=== PATIENT | female | born 1995 | race Caucasian/White ===

== ENCOUNTER 2016-09-09 01:32 | Emergency (ER) | payer OTHER ==
[2016-09-09 02:44] VITALS: BP 111/62; PULSE 75; TEMP 97.5; BMI 25.7
[2016-09-09 02:52] LABS: BASOPHIL 0.7 % (0-2.0); EOSINOPHIL 0.7 % (0-4.5); MCH 30.1 pg (25.7-33.7); MEAN PLT VOLUME 8.8 fl (7.5-11.1); NEUTROPHILS 82.7 % (42.8-82.8); PLATELET COUNT 270 K/MM3 (134-434); WHITE BLOOD COUNT 12.3 K/mm3 (4.0-10.0)
--- NOTE | 2016-09-09 02:59 | PDOC ---
History of Present Illness - General Chief Complaint: Vaginal Bleeding Stated Complaint: 5 WEEKS - BLEEDING Time Seen by Provider: 09/09/16 01:50 History Source: Patient Exam Limitations: No Limitations - History of Present Illness Travel History: No Initial Comments: 09/09/16 03:08 LMP: 07/18/2016 No Sign Painter Helper 21-year-old female presents to the emergency department with her complaining of vaginal bleed since yesterday. Patient states he she noticed at systems spotting every time she wipes after voiding, but noticed a larger amount at 1400 hrs. yesterday (one time). Patient denies headache, dizziness, lightheadedness, nausea/vomiting, fever/chills/diarrhea, chest pain, shortness of breath, flank pains, urinary symptoms. Timing/Duration: reports: intermittent Abdominal Pain Onset Location: reports: suprapubic Pain Radiation: reports: no radiation Past History - Past Medical History Allergies/Adverse Reactions: Allergies Allergy/AdvReac Type Severity Reaction Status Date / Time No Known Allergies Allergy Verified 09/09/16 02:44 Home Medications: Ambulatory Orders NK [No Known Home Medication] 09/09/16 Other medical history: Denies - Immunization History Immunization Up to Date: Yes - Psycho/Social/Smoking Cessation Hx Anxiety: No Suicidal Ideation: No Smoking History: Never smoked Have you smoked in the past 12 months: No Information on smoking cessation initiated: No Hx Alcohol Use: No Drug/Substance Use Hx: No Substance Use Type: None Review of Systems - Review of Systems Able to Perform ROS?: Yes Comments:: 09/09/16 03:06 CONSTITUTIONAL: Absent: fever, chills, diaphoresis, generalized weakness, malaise, loss of appetite HEENT: Absent: rhinorrhea, nasal congestion, throat pain, throat swelling, difficulty swallowing, mouth swelling, ear pain, eye pain, visual Changes CARDIOVASCULAR: Absent: chest pain, loss of consciousness, palpitations, irregular heart rate, peripheral edema RESPIRATORY: Absent: cough, shortness of breath, dyspnea with exertion, orthopnea, wheezing, stridor, hemoptysis GASTROINTESTINAL: +suprapubic pain Absent: abdominal distension, nausea, vomiting, diarrhea, constipation, melena , hematochezia GENITOURINARY: Absent: dysuria, frequency, urgency, hesitancy, hematuria, flank pain, genital pain MUSCULOSKELETAL: Absent: myalgia, arthralgia, joint swelling SKIN: Absent: rash, itching, pallor HEMATOLOGIC/IMMUNOLOGIC: Absent: easy bleeding, easy bruising, lymphadenopathy, frequent infections ENDOCRINE: Absent: unexplained weight gain, unexplained weight loss, heat intolerance, cold intolerance NEUROLOGIC: Absent: headache, focal weakness or paresthesias, dizziness, unsteady gait, seizure, mental status changes, bladder or bowel incontinence PSYCHIATRIC: Absent: anxiety, depression, suicidal or homicidal ideation, hallucinations. Is the patient limited Welsh proficient: No *Physical Exam - Vital Signs Last Vital Signs Temp Pulse Resp BP Pulse Ox 97.5 F L 75 18 111/62 100 09/09/16 02:41 09/09/16 02:41 09/09/16 02:41 09/09/16 02:41 09/09/16 02:41 - Physical Exam Comments: 09/09/16 03:06 GENERAL: Well developed, well nourished. Awake and alert. No acute distress. HEENT: Normocephalic, atraumatic. PERRLA, EOMI. No conjunctival pallor. Sclera are non- icteric. Moist mucous membranes. Oropharynx is clear. NECK: Supple. Full ROM. No JVD. Carotid pulses 2+ and symmetric, without bruits. No thyromegaly. No lymphadenopathy. CARDIOVASCULAR: Regular rate and rhythm. No murmurs, rubs, or gallops. Distal pulses are 2+ and symmetric. PULMONARY: No evidence of respiratory distress. Lungs clear to auscultation bilaterally. No wheezing, rales or rhonchi. ABDOMINAL: Soft. Non-tender. Non-distended. No rebound or guarding. No organomegaly. Normoactive bowel sounds. MUSCULOSKELETAL Normal range of motion at all joints. No bony deformities or tenderness. No CVA tenderness. EXTREMITIES: No cyanosis. No clubbing. No edema. No calf tenderness. SKIN: Warm and dry. Normal capillary refill. No rashes. No jaundice. NEUROLOGICAL: Alert, awake, appropriate. Cranial nerves 2-12 intact. No deficits to light touch and temperature in face, upper extremities and lower extremities. No motor deficits in the in face, upper extremities and lower extremities. Normoreflexic in the upper and lower extremities. Normal speech. Toes are down- going bilaterally. Gait is normal without ataxia. PSYCHIATRIC: Cooperative. Good eye contact. Appropriate mood and affect. Pelvic: External genitalia normal without lesions. Vaginal vault is clear without blood or discharge. Cervix is long and closed. ED Treatment Course - LABORATORY CBC & Chemistry Diagram: 09/09/16 02:40 09/09/16 02:40 - ADDITIONAL ORDERS Additional order review: 09/09/16 02:40 RBC 4.17 MCV 91.0 MCHC 33.0 RDW 13.0 MPV 8.8 Neutrophils % 82.7 Lymphocytes % 9.6 Monocytes % 6.3 Eosinophils % 0.7 Basophils % 0.7 - RADIOLOGY Radiology Studies Ordered: Category Date Time Status TRANSVAGINAL US PREG [US] Stat Ultrasound 09/09/16 01:46 Taken Radiograph Interpretation: 09/09/16 03:21 Transvaginal ultrasound shows there is a single intrauterine gestational sac and yolk sac but no pole. There is no subchorionic bleed. Right ovary measures at 2.9 cm in length and appears normal. The left ovary measures 2.2 cm in length and appears normal. There is no significant free fluid. *DC/Admit/Observation/Transfer Diagnosis at time of Disposition: Threatened - Discharge Dispostion Condition at time of disposition: Stable Admit: No - Referrals Referrals: STAFF,NOT ON [Primary Care Provider] - Ivon Frausto MD [Staff Physician] - - Patient Instructions Printed Discharge Instructions: DI for Threatened Additional Instructions: Take Tylenol as needed for pain No sexual intercourse Increase fluids Follow up with the director life sales listed on your discharge sheet Return to the emergency department for severe/persistent or worsening symptoms Your beta HCG today is 3902.5 See the director life sales or return to the ER for repeat blood work (Beta HCG) you have preliminarily transvaginal ultrasound report shows an early IUP which is a intrauterine gestational sac and yolk sac but there is no pole. *
[2016-09-09 03:12] LABS: ALBUMIN 3.9 g/dl (3.4-5.0); ANION GAP 9 (8-16); BILIRUBIN,TOTAL 0.4 mg/dL (0.2-1.0); CALCIUM 8.3 mg/dL (8.5-10.1); CO2 23 mmol/L (21-32); CREATININE 0.5 mg/dL (0.55-1.02); GLUCOSE,RANDOM 92 mg/dL (74-106); SGOT/AST 14 U/L (15-37); SGPT/ALT 28 U/L (12-78); TOT PROT 7.1 g/dl (6.4-8.2)
[2016-09-09 03:28] LABS: ALK PHOS 90 U/L (45-117)
== END 2016-09-09 04:19 | disposition home or self-care (01) ==
LOC: JER 01:32 → SUPCPDRO 01:32 → JER 04:19
DX: O20.0 Threatened abortion (principal); Z3A.01 Less than 8 weeks gestation of pregnancy
CPT/HCPCS: 36415; 76817-TC; 80053; 84702; 85025; 86850; 86900; 86901; 99282-25

== ENCOUNTER 2016-09-19 16:05 | Emergency (ER) | payer OTHER ==
[2016-09-19 16:22] VITALS: BP 138/84; PULSE 60; TEMP 98.5; BMI 23.7
--- NOTE | 2016-09-19 18:02 | PDOC ---
History of Present Illness <HayderNiharikajane Lopez - Last Filed: 09/19/16 20:42> - History of Present Illness Initial Comments: 09/19/16 20:36 Patient is a 21 year old female (11 weeks) who is presenting to the ED with heavy vaginal bleeding. The patient has been bleeding intermittently for the past 15 days during her ; she was seen in the ED on 09/09/16 for vaginal bleeding and suprapubic pain. While in the ED, the patient passed a large blood clot and is complaining of severe suprapubic pain. Denies fever, chills, nausea, vomiting, diarrhea. Patient receives her care at [address] [place] [address]. <Maine Callejas - Last Filed: 09/19/16 22:10> - General Chief Complaint: Vaginal Bleeding Stated Complaint: VAGINAL BLEEDING, 7 WKS Past History - Past Medical History Other medical history: PATIENT DENIES MEDICAL HX - Reproductive History Is Patient Now?: Yes (APPROX.7WEEKS) (#): 2 Para: 1 Cervical CA: No Dysfunctional Uterine Bleeding: No Ectopic : No Endometrial CA: No Polycystic Ovaries: No Therapeutic (s) & number: No Tubal Ligation: No Spontaneous : 0 - Immunization History Immunization Up to Date: Yes - Psycho/Social/Smoking Cessation Hx Anxiety: No Suicidal Ideation: No Smoking History: Never smoked Have you smoked in the past 12 months: No Hx Alcohol Use: No Drug/Substance Use Hx: No Substance Use Type: None <Niharika Singletary - Last Filed: 09/19/16 20:42> <Maine Callejas - Last Filed: 09/19/16 22:10> - Past Medical History Allergies/Adverse Reactions: Allergies Allergy/AdvReac Type Severity Reaction Status Date / Time No Known Allergies Allergy Verified 09/19/16 16:22 Home Medications: Ambulatory Orders NK [No Known Home Medication] 09/09/16 Review of Systems - Review of Systems Comments:: 09/19/16 20:37 CONSTITUTIONAL: Absent: fever, chills, diaphoresis, generalized weakness, malaise, loss of appetite HEENT: Absent: rhinorrhea, nasal congestion, throat pain, throat swelling, difficulty swallowing, mouth swelling, ear pain, eye pain, visual changes CARDIOVASCULAR: Absent: chest pain, syncope, palpitations, irregular heart rate, lightheadedness , peripheral edema RESPIRATORY: Absent: cough, shortness of breath, dyspnea with exertion, orthopnea, wheezing, stridor, hemoptysis GASTROINTESTINAL: Present: suprapubic pain Absent: abdominal distension, nausea, vomiting, diarrhea, constipation, melena, hematochezia GENITOURINARY: Present: vaginal bleeding Absent: dysuria, frequency, urgency, hesitancy, hematuria, flank pain, genital pain MUSCULOSKELETAL: Absent: myalgia, arthralgia, joint swelling SKIN: Absent: rash, itching, pallor HEMATOLOGIC/IMMUNOLOGIC: Absent: easy bleeding, easy bruising, lymphadenopathy, frequent infections ENDOCRINE: Absent: unexplained weight gain, unexplained weight loss, heat intolerance, cold intolerance NEUROLOGIC: Absent: headache, focal weakness or paresthesia, dizziness, unsteady gait, seizure, mental status changes, bladder or bowel incontinence. PSYCHIATRIC: Absent: anxiety, depression, suicidal or homicidal ideation, hallucinations <Maine Callejas - Last Filed: 09/19/16 22:10> *Physical Exam - Vital Signs Last Vital Signs Temp Pulse Resp BP Pulse Ox 98.5 F 60 18 138/84 100 09/19/16 16:19 09/19/16 16:19 09/19/16 16:19 09/19/16 16:19 09/19/16 16:19 <Niharika Singletary - Last Filed: 09/19/16 20:42> - Vital Signs Last Vital Signs Temp Pulse Resp BP Pulse Ox 98.5 F 60 18 138/84 100 09/19/16 16:19 09/19/16 16:19 09/19/16 16:19 09/19/16 16:19 09/19/16 16:19 - Physical Exam Comments: 09/19/16 20:45 GENERAL: Well developed, well nourished. Awake and alert. Tearful. HEENT: Normocephalic, atraumatic. PERRLA, EOMI. No conjunctival pallor. Sclera are non- icteric. Moist mucous membranes. Oropharynx is clear. NECK: Supple. Full ROM. No JVD. Carotid pulses 2+ and symmetric, without bruits. No thyromegaly. No lymphadenopathy. CARDIOVASCULAR: Regular rate and rhythm. No murmurs, rubs, or gallops. Distal pulses are 2+ and symmetric. PULMONARY: No evidence of respiratory distress. Lungs clear to auscultation bilaterally. No wheezing, rales or rhonchi. ABDOMINAL: Soft. Non-tender. Non-distended. No rebound or guarding. No organomegaly. Normoactive bowel sounds. MUSCULOSKELETAL: Normal range of motion at all joints. No bony deformities or tenderness. No CVA tenderness. EXTREMITIES: No cyanosis. No clubbing. No edema. No calf tenderness. SKIN: Warm and dry. Normal capillary refill. No rashes. No jaundice. NEUROLOGICAL: Alert, awake, appropriate. Cranial nerves 2-12 intact. Normal speech. Gait is normal without ataxia. PSYCHIATRIC: Cooperative. Good eye contact. Appropriate mood and affect. <Maine Callejas - Last Filed: 09/19/16 22:10> ED Treatment Course - LABORATORY CBC & Chemistry Diagram: 09/19/16 18:10 <Niharika Singletary - Last Filed: 09/19/16 20:42> - LABORATORY CBC & Chemistry Diagram: 09/19/16 18:10 - ADDITIONAL ORDERS Additional order review: Laboratory Results 09/19/16 18:10 Beta HCG, Quant 392.0 09/19/16 18:10 RBC 4.36 MCV 90.5 MCHC 33.3 RDW 13.2 MPV 9.1 Neutrophils % 57.2 D Lymphocytes % 31.5 D Monocytes % 8.1 Eosinophils % 2.1 D Basophils % 1.1 - RADIOLOGY Radiograph Interpretation: 09/19/16 20:46 Transvaginal US Impression: Essentially normal pelvic sonogram with no sonographic evidence of a viable intrauterine gestation. Clinical and laboratory correlation and follow- up ultrasonography recommended. Please see discussion. Reported By: Magen Batres MD - Medications Given in the ED: ED Medications Discontinued Medications Generic Name Dose Route Start Last Admin Trade Name Freq PRN Reason Stop Dose Admin Acetaminophen 650 mg 09/19/16 18:07 09/19/16 18:10 Tylenol - PO 09/19/16 18:08 650 mg ONCE ONE Administration <Maine Callejas - Last Filed: 09/19/16 22:10> *DC/Admit/Observation/Transfer <Niharika Singletary - Last Filed: 09/19/16 20:42> - Attestations Scribe Attestion: 09/19/16 20:38 Documentation prepared by Maine Callejas, acting as medical technologist chief for Niharika Singletary MD. <Maine Callejas - Last Filed: 09/19/16 22:10> Diagnosis at time of Disposition: Spontaneous - Discharge Dispostion Disposition: HOME Condition at time of disposition: Stable - Patient Instructions Printed Discharge Instructions: DI for Miscarriage Additional Instructions: please followup with your oil heaterman Print Language: SWEDISH
[2016-09-19] MEDS ORDERED: ACETAMINOPHEN 325 MG TABLET (FP) PO ONE (18:07)
[2016-09-19] MEDS ORDERED: ACETAMINOPHEN 650 MG/20.3 ML ORAL SOLUTION (CUPS) ONE (18:08)
[2016-09-19 18:43] LABS: BASOPHIL 1.1 % (0-2.0); EOSINOPHIL 2.1 % (0-4.5); MCH 30.1 pg (25.7-33.7); MCHC 33.3 g/dl (32.0-36.0); MEAN CELL VOLUME 90.5 fl (80-96); MEAN PLT VOLUME 9.1 fl (7.5-11.1); NEUTROPHILS 57.2 % (42.8-82.8); PLATELET COUNT 318 K/MM3 (134-434); RDW 13.2 % (11.6-15.6); WHITE BLOOD COUNT 5.6 K/mm3 (4.0-10.0)
== END 2016-09-19 21:15 | disposition home or self-care (01) ==
LOC: JER 16:05
DX: O02.1 Missed abortion (principal); Z3A.01 Less than 8 weeks gestation of pregnancy
CPT/HCPCS: 36415; 76817-TC; 84702; 85025; 99283-25

== ENCOUNTER 2017-07-19 12:30 | Inpatient (IN) | payer OTHER ==
[2017-07-19] MEDS: DEXTROSE 5%-LACTATED RINGERS 1,000 ML IV SCH ×2 (13:30→19:30)
[2017-07-19 13:35] VITALS: BMI 27.4
[2017-07-19] MEDS ORDERED: DINOPROSTONE 10 MG VAGINAL SUPPOSITORY VG ONE (13:55)
[2017-07-19 14:03] LABS: BASO % 0.5 % (0-2.0); EOS % 1.2 % (0-4.5); HEMATOCRIT 33.5 % (32.4-45.2); HEMOGLOBIN 11.3 GM/dL (10.7-15.3); LYMPH % 16.6 % (8-40); MCH 30.5 pg (25.7-33.7); MCHC 33.7 g/dl (32.0-36.0); MEAN CELL VOLUME 90.4 fl (80-96); MEAN PLT VOLUME 9.7 fl (7.5-11.1); MONO % 12.2 % (3.8-10.2); NEUT % 69.5 % (42.8-82.8); PLATELET COUNT 265 K/MM3 (134-434); RBC 3.71 M/mm3 (3.60-5.2); RDW 14.4 % (11.6-15.6); WHITE BLOOD COUNT 8.3 K/mm3 (4.0-10.0)
[2017-07-19] MEDS ORDERED: SODIUM PHOSPHATE/NA BIPHOS 133 ML ENEMA PR ONE (14:17)
[2017-07-19 14:18] LABS: INR 0.97 (0.82-1.09)
[2017-07-19 14:26] LABS: ANION GAP 10 (8-16); BLOOD UREA NITROGEN 8 mg/dL (7-18); CALCIUM 8.6 mg/dL (8.5-10.1); CHLORIDE 107 mmol/L (98-107); CO2 22 mmol/L (21-32); CREATININE 0.3 mg/dL (0.55-1.02); GLUCOSE,RANDOM 89 mg/dL (74-106); POTASSIUM 3.9 mmol/L (3.5-5.1); SODIUM 139 mmol/L (136-145)
--- NOTE | 2017-07-19 14:52 | HP ---
Past Medical History - Primary Care Physician PCP:: Ivon Frausto - Admission Chief Complaint: 22 yrs , 40.2 weeks admitted for induction of labpr . she is sent from the clinic because nst review ? decelration was noted. Jatin on 07/14/17 reported as 37.2 weeks, Bpp8/8, LACIE 14.6, EFW 3192 gm History of Present Illness: care at [address] [place] [address] . Wt gain 6 lbs panel 01/09/17 O pos, Rpr nr, Hbsag neg, Rubella immune, Hiv neg, Pap nilm, gc/ct neg 03/30/17 Quantiferon neg, 1 hr Gtt 73, rpr nr 06/25/17 Gbs neg, gc ng, ct neg, Hiv neg . pt was seen by [facility]FM History Source: Patient, Medical Record Limitations to Obtaining History: No Limitations - Past Medical History TREAD CUTTER: No: Migraine, Seizure Cardiovascular: No: HTN, Murmur Pulmonary: No: Asthma Gastrointestinal: Yes: Constipation. No: Gastritis Hepatobiliary: No: Hepatitis B Renal/: No: UTI ...: 3 ...Para: 1 (1 11/16/09 3 kg 870 gm in [place] ) ...Term: 1 ...: 0 ...Spon : 0 ...Induced : 1 ...Multiple Gestation: 0 ...LMP: 10/10/16 ... Weeks Gestation by Dates: 40.2 ...EDC by Dates: 07/17/17 ...EDC by Sono: 07/17/17 (40.2 weeks ) Heme/Onc: Yes: Anemia Infectious Disease: No: AIDS, HIV, STD's, Tuberculosis Psych: No: Addictions, Anxiety, Bipolar, Depression, Panic - Past Surgical History Past Surgical History: Yes: None Hx Myomectomy: No Hx Transabdominal Cerclage: No - Smoking History Smoking history: Never smoked Have you smoked in the past 12 months: No - Alcohol/Substance Use Hx Alcohol Use: No History of Substance Use: reports: None Home Medications - Allergies Allergies/Adverse Reactions: Allergies Allergy/AdvReac Type Severity Reaction Status Date / Time No Known Allergies Allergy Verified 07/19/17 12:59 - Home Medications Home Medications: Ambulatory Orders Ferrous Sulfate 325 mg PO TID 07/19/17 Pnv No.95/Ferrous Fum/Folic AC [ Vitamin Tablet] 1 each PO DAILY Physical Exam - Maternity Vital Signs: Vital Signs Temperature 98.9 F 07/19/17 12:58 Pulse Rate 85 07/19/17 12:58 Respiratory Rate 18 07/19/17 12:58 Blood Pressure 116/70 07/19/17 12:58 O2 Sat by Pulse Oximetry (%) Constitutional: Yes: Well Nourished, No Distress Eyes: Yes: WNL HENT: Yes: WNL, Normocephalic Neck: Yes: WNL Cardiovascular: Yes: WNL, Regular Rate and Rhythm Lungs: Clear to auscultation Breast(s): Yes: WNL - Abdominal Exam/OB Fundal Height: 40 Number of Fetuses: Single Presentation: Vertex Contractions: Yes Regularity: Regular (3-4 min) Intensity: Mild Monitor Mode: External Heart Rate (range): 125 Heart Rate Location: [facility] Category: I Accelerations: Uniform Decelerations: None - Vaginal Exam/OB Vaginal Bleediing: No Speculum Exam: No Dilatation (cm): 1 Effacement (%): 50 Amniotic Membrane Status: Intact Presentation: Vertex/Position Station: -3 - Physical Exam Musculoskeletal: Yes: WNL Extremities: Yes: WNL. No: Calf Tenderness Edema: Yes Edema: LLE: Trace, RLE: Trace Integumentary: Yes: WNL Deep Tendon Reflex Grade: Normal +2 ...Motor Strength: WNL Psychiatric: Yes: WNL, Alert, Oriented - Labs Lab Results: CBC, BMP 07/19/17 13:35 07/19/17 13:35 Laboratory Tests 07/19/17 13:35 PT with INR 11.00 INR 0.97 PTT (Actin FS) 31.0 Problem List - Problems (1) Post term over 40 weeks Code(s): O48.0 - POST-TERM (2) Elective induction of labor planned Code(s): PMP1664 - Assessment/Plan 22 yrs , post term pregn, 40.2 weeks , for induction of labor. Gbs neg Plan cervidil induction vaginal delivery trial
[2017-07-20] MEDS ORDERED: BUTORPHANOL TARTRATE 1 MG/ML VIAL IVPUSH ONE (01:42)
[2017-07-20] MEDS ORDERED: PROMETHAZINE HCL 25 MG/1 ML VIAL IVPUSH ONE (01:42)
--- NOTE | 2017-07-20 01:54 | PN ---
Progress Note, Labor Vaginal Exam #1 Labor Exam Date: 07/20/17 Labor Exam Time: 01:50 Heart Rate (range): 130 Dilatation: 3 Effacement (%): 70 Amniotic Membrane Status: Intact Presentation: Vertex/Position Station: -2 Remarks: FHR cat-1 uc are irregular cervidil removed plan fleets enema, shower, stadol & phenergan iv prn pitocin augmentation prn Selected Entries 07/20/17 01:00 Temperature 98.1 F Pulse Rate 67 Blood Pressure 130/71 Vaginal Exam #2 Labor Exam Date: 07/20/17 Labor Exam Time: 05:15 Heart Rate (range): 135 Dilatation: 8-9 Effacement (%): 100 Amniotic Membrane Status: Ruptured (AROM clear) Presentation: Vertex/Position Station: +1 Remarks: FHR cat-1 UC q2 min pt has been pushing Selected Entries 07/20/17 07/20/17 02:00 05:00 Temperature 98.4 F Pulse Rate 72 73 Blood Pressure 127/69 110/60 Blood Pressure 76 Mean Vaginal Exam #3 Labor Exam Date: 07/20/17 Labor Exam Time: 05:27 Heart Rate (range): 130 Dilatation: 10 Effacement (%): 100 Amniotic Membrane Status: Ruptured Presentation: Vertex/Position Station: +2 Remarks: pt pushing
[2017-07-20] MEDS ORDERED: OXYTOCIN 30 UNITS in 0.9% NS 30 UNIT/500 ML INFUS.BAG IVPB SCH (03:00)
[2017-07-20] MEDS ORDERED: BUTORPHANOL TARTRATE 1 MG/ML VIAL ONE ×2 (03:46)
[2017-07-20] MEDS ORDERED: PROMETHAZINE HCL 25 MG/1 ML VIAL ONE (03:46)
[2017-07-20] MEDS ORDERED: OXYTOCIN 20 UNITS in 0.9% NS 20 UNIT/1,000 ML INFUS.BAG IV ONE (03:59)
[2017-07-20] MEDS: OXYTOCIN 20 UNITS in 0.9% NS 20 UNIT/1,000 ML INFUS.BAG IV SCH ×2 (05:32→06:44)
[2017-07-20] MEDS ORDERED: METHYLERGONOVINE MALEATE 0.2 MG/1 ML AMP IM PRN (05:37)
[2017-07-20] MEDS ORDERED: BENZOCAINE 20% 57 GM BOTTLE TP PRN (06:03)
[2017-07-20] MEDS ORDERED: WITCH HAZEL 50% (TUCKS) 40 PAD/JAR PAD TP PRN (06:03)
[2017-07-20] MEDS ORDERED: BISACODYL 10 MG SUPP.RECT RC PRN (06:03)
[2017-07-20] MEDS ORDERED: BENZOCAINE 28 GM HEMORRHOIDAL OINTMENT TP PRN (06:03)
--- NOTE | 2017-07-20 06:16 | PN ---
Delivery - Delivery Vaginal Delivery: No Problems, Spontaneous Type of Anesthesia: None Episiotomy/Laceration: None EBL (cc): 300 Delivery, Single - Stages of Labor Date 1st Stage Initiatied: 07/19/17 Time 1st Stage Initiated: 19:00 Date 2nd Stage Initiated: 07/20/17 Time 2nd Stage Initiated: 05:20 Date of Delivery: 07/20/17 Time of Delivery: 05:27 Time Placenta Delivered: 05:32 Placenta: Yes: Spontaneous, Uterine Exploration - Condition of Carpenter Mold/Brush Polisher Present: No Gender: Male Weight: 6 lb 6 oz Position: Left, OA Total Hours ROM (Hrs/Mins): 17 minutes - 1 Minute Total Score: 9 5 Minutes Total Score: 9 - [place] Feeding Plan Initial Plan: Elected not to breastfeed exclusively throughout hospitalization Remarks - Remarks Remarks: 22 yrs , post term pregn ,40.2 weeks , admitted for induction gbs neg pnc at , [facility] cervidil inserted 07/19/17 pitocin augmentation 07/20/17 stadol + phenrgan for labor analgesia 07/20/17 Intrapartum course uneventful
[2017-07-20] MEDS: PRENATAL VITAMINS W/ FOLIC ACID TABLET (FP) PO SCH (09:19)
[2017-07-20] MEDS: FERROUS SO4 325 MG TABLET (FP) PO SCH ×2 (09:19→16:52)
[2017-07-20] MEDS: ACETAMINOPHEN 325 MG TABLET (FP) PO PRN ×2 (15:03→21:16)
[2017-07-20] MEDS: IBUPROFEN 600 MG TABLET (FP) PO PRN ×2 (15:04→21:17)
[2017-07-20] MEDS: SENNOSIDES/DOCUSATE COMBO (SENNA PLUS) TABLET (UD) PO PRN (21:14)
[2017-07-21] MEDS: IBUPROFEN 600 MG TABLET (FP) PO PRN ×3 (02:49→20:57)
[2017-07-21] MEDS: ACETAMINOPHEN 325 MG TABLET (FP) PO PRN ×3 (02:49→20:57)
[2017-07-21] MEDS: FERROUS SO4 325 MG TABLET (FP) PO SCH ×2 (08:30→16:57)
[2017-07-21 08:34] LABS: BASO % 0.6 % (0-2.0); EOS % 1.4 % (0-4.5); HEMATOCRIT 25.7 % (32.4-45.2); HEMOGLOBIN 8.8 GM/dL (10.7-15.3); LYMPH % 26.1 % (8-40); MCH 31.1 pg (25.7-33.7); MCHC 34.2 g/dl (32.0-36.0); MEAN CELL VOLUME 90.9 fl (80-96); MEAN PLT VOLUME 9.1 fl (7.5-11.1); MONO % 9.5 % (3.8-10.2); NEUT % 62.4 % (42.8-82.8); PLATELET COUNT 224 K/MM3 (134-434); RBC 2.83 M/mm3 (3.60-5.2); RDW 14.8 % (11.6-15.6); WHITE BLOOD COUNT 7.6 K/mm3 (4.0-10.0)
[2017-07-21] MEDS ORDERED: FLU VACC QS2017-18 36MOS UP/PF 60 MCG/0.5 ML SYRINGE IM ONE (10:00)
[2017-07-21] MEDS ORDERED: DIPHTH,PERTUSS(ACELL),TET 0.5 ML DISP.SYRIN IM ONE (10:00)
--- NOTE | 2017-07-21 10:15 | PN ---
Post Progress Note - Subjective Subjective: Pt PPD#1 s/p . Feeling well. Ambulating and voiding. Bleeding mild. Breast feeding Post Day: 1 Type of Delivery: Vital Signs: Vital Signs Temperature 98.4 F 07/21/17 08:39 Pulse Rate 65 07/21/17 08:39 Respiratory Rate 20 07/21/17 08:39 Blood Pressure 106/64 07/21/17 08:39 O2 Sat by Pulse Oximetry (%) 100 07/20/17 06:45 Breast Exam: Yes: Soft Uterus: Yes: Fundus Firm Abdomen/GI: Yes: Abdomen soft Lochia: Yes: Rubra Lochia, amount: Small Extremities: Yes: Calves non-tender Activity: Ambulating - Labs Labs: CBC WBC 7.6 K/mm3 (4.0-10.0) 07/21/17 07:45 RBC 2.83 M/mm3 (3.60-5.2) L D 07/21/17 07:45 Hgb 8.8 GM/dL (10.7-15.3) L D 07/21/17 07:45 Hct 25.7 % (32.4-45.2) L D 07/21/17 07:45 MCV 90.9 fl (80-96) 07/21/17 07:45 MCH 31.1 pg (25.7-33.7) 07/21/17 07:45 MCHC 34.2 g/dl (32.0-36.0) 07/21/17 07:45 RDW 14.8 % (11.6-15.6) 07/21/17 07:45 Plt Count 224 K/MM3 (134-434) 07/21/17 07:45 MPV 9.1 fl (7.5-11.1) 07/21/17 07:45 Neutrophils % 62.4 % (42.8-82.8) 07/21/17 07:45 Lymphocytes % 26.1 % (8-40) D 07/21/17 07:45 Monocytes % 9.5 % (3.8-10.2) 07/21/17 07:45 Eosinophils % 1.4 % (0-4.5) 07/21/17 07:45 Basophils % 0.6 % (0-2.0) 07/21/17 07:45 Problem List - Problems (1) Normal spontaneous vaginal delivery Assessment/Plan: Pt PPD#1 s/p continue routine pp care plan for discharge home tomorrow Code(s): O80 - ENCOUNTER FOR FULL-TERM UNCOMPLICATED DELIVERY
[2017-07-21] MEDS: PRENATAL VITAMINS W/ FOLIC ACID TABLET (FP) PO SCH (10:42)
[2017-07-21] MEDS: SENNOSIDES/DOCUSATE COMBO (SENNA PLUS) TABLET (UD) PO PRN (20:57)
[2017-07-22] MEDS: IBUPROFEN 600 MG TABLET (FP) PO PRN (07:21)
[2017-07-22] MEDS: FERROUS SO4 325 MG TABLET (FP) PO SCH (07:22)
[2017-07-22] MEDS: ACETAMINOPHEN 325 MG TABLET (FP) PO PRN (07:22)
--- NOTE | 2017-07-22 07:25 | DS ---
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 Vital Signs: Vital Signs Temperature 98.1 F 07/21/17 20:56 Pulse Rate 60 07/21/17 20:56 Respiratory Rate 20 07/21/17 20:56 Blood Pressure 118/69 07/21/17 20:56 O2 Sat by Pulse Oximetry (%) 100 07/20/17 06:45 Constitutional: Yes: Well Nourished Eyes: Yes: Conjunctiva Clear HENT: Yes: Atraumatic Neck: Yes: Supple Cardiovascular: Yes: Regular Rate and Rhythm Respiratory: Yes: Regular Gastrointestinal: Yes: Normal Bowel Sounds Vaginal Exam: Yes: Normal Cervix: Yes: Normal Uterus: Yes: Firm ....Post : Yes: Uterus firm, Slight lochia rubra Breast(s): Yes: WNL Integumentary: Yes: WNL Neurological: Yes: Alert, Oriented ...Motor Strength: WNL Psychiatric: Yes: Alert, Oriented Labs: CBC, BMP 07/21/17 07:45 07/19/17 13:35 Delivery - Delivery Vaginal Delivery: No Problems, Spontaneous Type of Anesthesia: None Episiotomy/Laceration: None EBL (cc): 300 Delivery, Single - Stages of Labor Date 1st Stage Initiatied: 07/19/17 Time 1st Stage Initiated: 19:00 Date 2nd Stage Initiated: 07/20/17 Time 2nd Stage Initiated: 05:20 Date of Delivery: 07/20/17 Time of Delivery: 05:27 Time Placenta Delivered: 05:32 Placenta: Yes: Spontaneous, Uterine Exploration - Condition of Infant Pattern Maker/Agency Sales Director Present: No Infant Gender: Male Weight: 6 lb 6 oz Position: Left, OA Total Hours ROM (Hrs/Mins): 17 minutes - 1 Minute Total Score: 9 5 Minutes Total Score: 9 - [place] Feeding Plan Initial Plan: Elected not to breastfeed exclusively throughout hospitalization Discharge Summary Reason For Visit: LABOR INDUCTION Current Active Problems Elective induction of labor planned (Acute) Normal spontaneous vaginal delivery (Acute) Post term over 40 weeks (Acute) Procedures: Principal: Normal spontaneous vaginal delivery Hospital Course: Routine care Condition: Stable - Instructions Diet, Activity, Other Instructions: Post Instructions DIET: Continue good diet high in protein, calcium, and iron rich foods. Drink at least eight (8) glasses of water daily in addition to other fluids. ___ Regular diet MEDICATIONS: Continue vitamins and iron as previously directed. Motrin and Tylenol may be taken for minor discomfort. ACTIVITY: Mild to moderate exercise may be started in two (2) weeks. Take frequent rest periods. Resume normal activity after six (6) week check up. WOUND CARE OF OPERATIVE SITE: Continue use of perineal bottle until vaginal discharge stops. Keep area clean. Shower daily. Keep abdominal wound dry. Report any drainage or redness to physician. Tub baths, tampons and douches are not permitted for [address] Breast feeding & or Bottle feeding BREAST CARE: (For those that are not breast feeding): If engorgement occurs: Wear tight fitting bra. Take Tylenol or Motrin for pain. Apply cold packs (ice in bags to each breast ) FAMILY PLANNING: There are many control alternatives to pursue and they should be discussed at your first office visit. You may resume sexual activity after your six (6) week check up. (Remember, breast feeding is not a contraceptive) NEXT PHYSICIAN APPOINTMENT: Be certain to call for a six (6) week appointment, unless otherwise directed. Call Clinic or got to Emergency Dept if you have any of the following: Heavy vaginal bleeding Painful urination Leg pain Unusual odor noted to vaginal bleeding High fever Red streaking noted on breast Referrals: Ivon Frausto MD [Staff Physician] - Disposition: HOME - Home Medications Comprehensive Discharge Medication List: Ambulatory Orders Ferrous Sulfate 325 mg PO TID 07/19/17 Pnv No.95/Ferrous Fum/Folic AC [ Vitamin Tablet] 1 each PO DAILY Acetaminophen [Tylenol .Regular Strength -] 650 mg PO Q3H PRN tablet 07/20/17 Ferrous Sulfate [Feosol] 325 mg PO BIDWM ud 07/20/17 Ibuprofen [Motrin -] 200 mg PO Q4H PRN tablet 07/20/17 Vitamins (Sjr) - 1 tab PO DAILY tablet 07/20/17
[2017-07-22 07:53] VITALS: BP 122/74; PULSE 62; TEMP 98.6
[2017-07-22] MEDS: PRENATAL VITAMINS W/ FOLIC ACID TABLET (FP) PO SCH (09:27)
== END 2017-07-22 11:45 | disposition home or self-care (01) | DRG 560 ==
LOC: JDEL 12:30 → JLDR 12:55 → J3W 07-20 08:20
PROVIDERS: ADMIT Obstetrics & Gynecology; ATTEND Obstetrics & Gynecology
PROC: 10E0XZZ Delivery of Products of Conception, External Approach (ICD-10-PCS; principal; 2017-07-20)
DX: O48.0 Post-term pregnancy (principal); Z3A.40 40 weeks gestation of pregnancy; Z37.0 Single live birth
CPT/HCPCS: 36415; 59409; 80048; 85025; 85610; 85730; 86593; 86850; 86900; 86901; 90686; 90715

== ENCOUNTER 2017-12-01 23:31 | Emergency (ER) | payer OTHER ==
[2017-12-01 23:36] VITALS: BP 128/84; PULSE 60; TEMP 98.8; BMI 33.7
--- NOTE | 2017-12-01 23:54 | PDOC ---
History of Present Illness - General Chief Complaint: Ingrown toenail Stated Complaint: FOOT INJURY Time Seen by Provider: 12/01/17 23:44 History Source: Patient Exam Limitations: No Limitations - History of Present Illness Initial Comments: 12/01/17 23:52 22-year-old woman without significant past medical history presents emergency Department with left great toe pain for the past 7 days. Patient states she noticed some erythema to the cuticle of the great toe of her left foot starting one week ago. She has been using warm soaks to her foot which has decreased the pain and now has begun draining at the eponychia. She denies fevers, chills, severe pain or erythema. Past History - Past Medical History Allergies/Adverse Reactions: Allergies Allergy/AdvReac Type Severity Reaction Status Date / Time No Known Allergies Allergy Verified 12/01/17 23:36 Home Medications: Ambulatory Orders Ferrous Sulfate 325 mg PO TID 07/19/17 Pnv No.95/Ferrous Fum/Folic AC [ Vitamin Tablet] 1 each PO DAILY Acetaminophen [Tylenol .Regular Strength -] 650 mg PO Q3H PRN tablet 07/20/17 Ferrous Sulfate [Feosol] 325 mg PO BIDWM ud 07/20/17 Ibuprofen [Motrin -] 200 mg PO Q4H PRN tablet 07/20/17 Vitamins (Sjr) - 1 tab PO DAILY tablet 07/20/17 Asthma: No Cancer: No Cardiac Disorders: No Diabetes: No HTN: No Seizures: No Thyroid Disease: No - Reproductive History (#): 2 Para: 1 Cervical CA: No Dysfunctional Uterine Bleeding: No Ectopic : No Endometrial CA: No Polycystic Ovaries: No Therapeutic (s) & number: No Tubal Ligation: No Spontaneous : 0 - Immunization History Immunization Up to Date: Yes - Suicide/Smoking/Psychosocial Hx Smoking History: Never smoked Have you smoked in the past 12 months: No Information on smoking cessation initiated: No Hx Alcohol Use: No Drug/Substance Use Hx: No Substance Use Type: None Hx Substance Use Treatment: No Review of Systems - Review of Systems Able to Perform ROS?: Yes Is the patient limited Italian proficient: No Constitutional: No: Symptoms Reported HEENTM: No: Symptoms Reported Respiratory: No: Symptoms reported Cardiac (ROS): No: Symptoms Reported ABD/GI: No: Symptoms Reported : No: Symptoms Reported Musculoskeletal: No: Symptoms Reported Integumentary: Yes: See HPI Neurological: No: Symptoms reported Endocrine: No: Symptoms Reported Hematologic/Lymphatic: No: Symptoms Reported *Physical Exam - Vital Signs Last Vital Signs Temp Pulse Resp BP Pulse Ox 98.8 F 60 20 128/84 99 12/01/17 23:33 12/01/17 23:33 12/01/17 23:33 12/01/17 23:33 12/01/17 23:33 - Physical Exam General Appearance: Yes: Appropriately Dressed. No: Apparent Distress Extremity: positive: Other (Swelling noted to the medial aspect of the cuticle of the great toe of the left foot. Minimal erythema present. Mildly painful to palpation. Scant amount of pus draining) Medical Decision Making - Medical Decision Making 12/01/17 23:55 A/P: 22-year-old woman with ingrown toenail of the right great toe Swelling noted to the medial aspect of the cuticle of the great toe of the left foot. Minimal erythema present. Mildly painful to palpation. Scant amount of pus draining No involvement of the pad of the great toe Given mild infection present, I will discharge the patient home to continue with warm soaks I will add steroid cream to help with inflammation. I'll give the patient referral for podiatry should symptoms continue or worsen. Patient instructed on importance of well fitting shoes and the avoidance of cutting toenails until they extend beyond lateral nail fold. Discharge home *DC/Admit/Observation/Transfer Diagnosis at time of Disposition: Ingrown left big toenail - Discharge Dispostion Disposition: HOME Condition at time of disposition: Stable Decision to Admit order: No - Referrals Referrals: Tera Garcia MD [Staff Physician] - - Patient Instructions Printed Discharge Instructions: DI for Ingrown Toenail Additional Instructions: Always wear well fitting shoes. Avoid pedicures until this problem has improved. You have been given a referral for health information clerk. If symptoms worsen call for an appointment. Continue with warm soaks with Epsom salts 3 times a day to help decrease pain and swelling After soaks apply hydrocortisone cream to the toe. Return to emergency department for worsening pain, fevers, redness, streaks from the toenail or any other concerns. Thank you very much for treasonous provider emergent health care needs. Siempre use zapatos blossom ajustados. Evite las pedicuras hasta que arnold problema haya joseph. Le dieron un referido para podiatra. Si los sntomas empeoran, solicite keshia edin. Contine con baos tibios con sales de Epsom 3 veces al da para ayudar a disminuir el dolor y la hinchazn. Despus de los baos aplicar crema de hidrocortisona al dedo del pie. Regrese al departamento de emergencias por empeoramiento del dolor, fiebre, enrojecimiento, vetas de la ua del pie u otras preocupaciones. Muchas carol por las necesidades urgentes de atencin mdica del proveedor traidor. Print Language: YI - Post Discharge Activity
== END 2017-12-02 00:07 | disposition home or self-care (01) ==
LOC: JER 23:31
DX: L60.0 Ingrowing nail (principal)
CPT/HCPCS: 99281-25

== ENCOUNTER 2018-11-07 15:19 | Emergency (ER) | payer OTHER ==
[2018-11-07 15:25] VITALS: BP 122/45; PULSE 88; TEMP 98.8; BMI 27.3
--- NOTE | 2018-11-07 15:26 | PDOC ---
Rapid Medical Evaluation Time Seen by Provider: 11/07/18 15:21 Medical Evaluation: Allergies Allergy/AdvReac Type Severity Reaction Status Date / Time No Known Allergies Allergy Verified 12/01/17 23:36 11/07/18 15:22 I have performed a brief in-person evaluation of this patient. The patient presents with a chief complaint of: Left shoulder pain and SOB s/p heavy lifting. Pain worsens with deep inspiration Pertinent physical exam findings: Lungs CTAB. Left anterior shoulder TTP. FAROM. I have ordered the following: EKG, CXR, urine The patient will proceed to the ED for further evaluation. Discharge Disposition - Diagnosis Shoulder pain, left - Referrals - Patient Instructions - Post Discharge Activity
--- NOTE | 2018-11-07 16:37 | PDOC ---
History of Present Illness - General Chief Complaint: Chest Pain Stated Complaint: CHEST PAIN Time Seen by Provider: 11/07/18 15:21 History Source: Patient Exam Limitations: No Limitations Past History - Past Medical History Allergies/Adverse Reactions: Allergies Allergy/AdvReac Type Severity Reaction Status Date / Time No Known Allergies Allergy Verified 12/01/17 23:36 Home Medications: Ambulatory Orders Ferrous Sulfate 325 mg PO TID 07/19/17 Pnv No.95/Ferrous Fum/Folic AC [ Vitamin Tablet] 1 each PO DAILY Acetaminophen [Tylenol .Regular Strength -] 650 mg PO Q3H PRN tablet 07/20/17 Ferrous Sulfate [Feosol] 325 mg PO BIDWM ud 07/20/17 Ibuprofen [Motrin -] 200 mg PO Q4H PRN tablet 07/20/17 Vitamins (Sjr) - 1 tab PO DAILY tablet 07/20/17 Asthma: No Cancer: No Cardiac Disorders: No COPD: No Diabetes: No HTN: No Seizures: No Thyroid Disease: No - Reproductive History (#): 2 Para: 1 Cervical CA: No Dysfunctional Uterine Bleeding: No Ectopic : No Endometrial CA: No Polycystic Ovaries: No Therapeutic (s) & number: No Tubal Ligation: No Spontaneous : 0 - Immunization History Immunization Up to Date: Yes - Suicide/Smoking/Psychosocial Hx Smoking History: Never smoked Have you smoked in the past 12 months: No Information on smoking cessation initiated: No Hx Alcohol Use: No Drug/Substance Use Hx: No Substance Use Type: None Hx Substance Use Treatment: No *Physical Exam - Vital Signs Last Vital Signs Temp Pulse Resp BP Pulse Ox 98.8 F 88 19 122/45 L 98 11/07/18 15:23 11/07/18 15:23 11/07/18 15:23 11/07/18 15:23 11/07/18 15:23 - Physical Exam General Appearance: No: Apparent Distress Respiratory/Chest: positive: Lungs Clear, Normal Breath Sounds. negative: Respiratory Distress Cardiovascular: positive: Regular Rhythm, Regular Rate, S1, S2. negative: Murmur Gastrointestinal/Abdominal: positive: Normal Bowel Sounds, Soft. negative: Tender, Distended, Guarding, Rebound Extremity: negative: Pedal Edema, Swelling, Calf Tenderness Integumentary: positive: Normal Color Neurologic: positive: Alert, Normal Mood/Affect ED Treatment Course - LABORATORY CBC & Chemistry Diagram: 11/07/18 16:33 11/07/18 16:33 Medical Decision Making - Medical Decision Making 23 y/o F with no sig pmh presents with B/L shoulder pain and chest pain x 3 days , now worse along L shoulder after lifting something heavy today. Pain is worse with inspiration. Has IUD (Mirena). Denies recent travel. Has mild SOB due to pain on inspiration. Denies fever, chills, cough, abd pain, n/v, calf swelling, calf pain. Denies smoking/alcohol/drug use. Denies FH of CAD or [place] Unlikely ACS given no risk factors Consider costochondritis, PE, MSK pain Plan: Labs, CXR 11/07/18 16:34 Labs unremarkable CXR negative Likely MSK pain Stable for dc 11/07/18 17:43 *DC/Admit/Observation/Transfer Diagnosis at time of Disposition: Musculoskeletal chest pain - Discharge Dispostion Disposition: HOME Condition at time of disposition: Stable Decision to Admit order: No - Referrals - Patient Instructions Printed Discharge Instructions: DI for Musculoskeletal Pain Additional Instructions: Thank you for choosing [facility]. It was a pleasure taking care of you. Your labs and chest xray here were normal. You may take Motrin 600 mg every 6 hours by mouth as needed for mild to moderate pain. Take Motrin with food. Please follow-up with your doctor in 2 days Return to the Emergency Department if your symptoms worsen or persist or have other concerning symptoms. - Post Discharge Activity
[2018-11-07 17:04] LABS: BASO % 0.3 % (0-2.0); EOS % 0.2 % (0-4.5); HEMATOCRIT 38.1 % (32.4-45.2); HEMOGLOBIN 12.8 GM/dL (10.7-15.3); MCH 29.9 pg (25.7-33.7); MCHC 33.5 g/dl (32.0-36.0); MEAN CELL VOLUME 89.3 fl (80-96); MEAN PLT VOLUME 8.9 fl (7.5-11.1); MONO % 5.4 % (3.8-10.2); NEUT % 87.1 % (42.8-82.8); PLATELET COUNT 297 K/MM3 (134-434); RBC 4.26 M/mm3 (3.60-5.2); RDW 13.2 % (11.6-15.6); WHITE BLOOD COUNT 13.7 K/mm3 (4.0-10.0)
[2018-11-07 17:23] LABS: ANION GAP 6 MMOL/L (8-16); BLOOD UREA NITROGEN 7.8 mg/dL (7-18); CALCIUM 8.8 mg/dL (8.5-10.1); CHLORIDE 106 mmol/L (98-107); CO2 26 mmol/L (21-32); CREATININE 0.5 mg/dL (0.55-1.3); GLUCOSE,RANDOM 85 mg/dL (74-106); POTASSIUM 3.9 mmol/L (3.5-5.1); SODIUM 139 mmol/L (136-145)
[2018-11-07 17:35] LABS: INR 1.13 (0.83-1.09); PROTHROMBIN TIME (PATIENT) 13.4 SEC (9.7-13.0)
--- NOTE | 2018-11-08 13:37 | EKG ---
Test Reason : Blood Pressure : / mmHG Vent. Rate : 082 BPM Atrial Rate : 082 BPM P-R Int : 172 ms QRS Dur : 080 ms QT Int : 352 ms P-R-T Axes : 033 054 024 degrees QTc Int : 411 ms NORMAL SINUS RHYTHM NORMAL ECG NO PREVIOUS ECGS AVAILABLE Confirmed by MIKE LEWIS MD ([id number]) on 11/08/2018 1:36:50 PM Referred By: Confirmed By:MIKE LEWIS MD
== END 2018-11-07 17:50 | disposition home or self-care (01) ==
LOC: JER 15:19
DX: R07.89 Other chest pain (principal); Z97.5 Presence of (intrauterine) contraceptive device
CPT/HCPCS: 36415; 71046-TC-FY; 80048; 84484; 84703; 85025; 85379; 85610; 85730; 93005; 93010; 99282-25

== ENCOUNTER 2019-06-17 07:03 | Emergency (ER) | payer OTHER ==
[2019-06-17 07:33] VITALS: BP 112/68; PULSE 95; TEMP 98.3; BMI 26.2
--- NOTE | 2019-06-17 08:19 | PDOC ---
History of Present Illness - General History Source: Patient Exam Limitations: No Limitations - History of Present Illness Initial Comments: 06/17/19 08:19 Patient is a 24-year-old female presents to the ED with 3 to 4 days of cough and intermittent fevers. She states she has some nasal congestion and drainage. She denies any shortness of breath. She states now she believes that she got her child sick as well. She has been taking Tylenol and ibuprofen for her fevers. She denies any past medical history or allergies to medications. <Alyse Kohler - Last Filed: 06/17/19 08:19> <Severiano Roes - Last Filed: 06/21/19 10:12> - General Chief Complaint: Cold Symptoms Stated Complaint: COLD SYMPTOMS,THROAT PAIN Time Seen by Provider: 06/17/19 07:45 Past History - Past Medical History Asthma: No Cancer: No Cardiac Disorders: No COPD: No Diabetes: No HTN: No Seizures: No Thyroid Disease: No - Reproductive History (#): 2 Para: 1 Cervical CA: No Dysfunctional Uterine Bleeding: No Ectopic : No Endometrial CA: No Polycystic Ovaries: No Therapeutic (s) & number: No Tubal Ligation: No Spontaneous : 0 - Immunization History Immunization Up to Date: Yes - Psycho Social/Smoking Cessation Hx Smoking History: Never smoked Have you smoked in the past 12 months: No Hx Alcohol Use: Yes Drug/Substance Use Hx: No Substance Use Type: None Hx Substance Use Treatment: No <Alyse Kohler - Last Filed: 06/17/19 08:19> <Severiano Rose - Last Filed: 06/21/19 10:12> - Past Medical History Allergies/Adverse Reactions: Allergies Allergy/AdvReac Type Severity Reaction Status Date / Time No Known Allergies Allergy Verified 06/17/19 07:30 Home Medications: Ambulatory Orders Acetaminophen [Tylenol .Regular Strength -] 650 mg PO Q3H PRN tablet 07/20/17 Ibuprofen [Motrin -] 200 mg PO Q4H PRN tablet 07/20/17 Review of Systems - Review of Systems Comments:: 06/17/19 08:20 - Review of Systems Able to Perform ROS?: Yes Constitutional: No: Fever, Chills, Loss of Appetite, Night Sweats, Weakness HEENTM: No: Eye Pain, Vision changes, Ear Pain, Throat Pain, Throat Swelling, Mouth Pain, Difficulty Swallowing; Positive nasal drainage Respiratory: No: Shortness of Breath, Wheezing, Sputum Production; Positive cough Cardiac (ROS): No: Chest Pain, Chest Tightness, Palpitations, Irregular Heart Beat, Edema ABD/GI: No: Nausea, Vomiting, Abdominal Pain, Diarrhea : No Dysuria, No Hematuria, No Frequency, No Urgency Musculoskeletal: No: Muscle Pain, Back Pain, Joint Pain, Muscle Weakness, Neck Pain Integumentary: No: Lesions, Rash Neurological: No: Headache, Numbness, Tingling, Weakness, Speech Difficulties <Jose F,Alyse D - Last Filed: 06/17/19 08:19> *Physical Exam - Vital Signs Last Vital Signs Temp Pulse Resp BP Pulse Ox 98.3 F 95 H 18 112/68 98 06/17/19 07:30 06/17/19 07:30 06/17/19 07:30 06/17/19 07:30 06/17/19 07:30 - Physical Exam 06/17/19 08:21 - Physical Exam General Appearance: Nourished, Appropriately Dressed, No Distress HEENT: EOMI, Normal Voice, No Pharyngeal Erythema, No Muffled/Hoarse voice, No Tonsillar Exudate, No Tonsillar Erythema, No Nasal Congestion, No Rhinorrhea, Hearing Grossly Normal, TMs Normal, No TM Bulging, No TM Dullness, No TM Erythema Neck: Supple, No Lymphadenopathy (R), No Lymphadenopathy (L), No Rigidity, No Decreased range of motion Respiratory/Chest: Lungs Clear, Normal Breath Sounds. No Respiratory Distress, No Accessory Muscle Use; No adventitious lung sounds appreciated. Good air entry bilaterally. Cardiovascular: Regular Rhythm, Regular Rate, S1, S2 Gastrointestinal/Abdominal: Normal Bowel Sounds, Soft. Non-tender, No Guarding , No Rebound, No Rigidity Musculoskeletal: Normal Inspection. No Decreased Range of Motion Extremity: Normal Capillary Refill, Normal Inspection Integumentary: Normal Color, Dry. 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 Plan: I have made the patient aware that her symptoms are secondary to a viral URI. She can continue to take Motrin and Tylenol. She should get plenty rest and drink plenty of fluids. She should follow-up with her primary doctor within 1 to 2 days for repeat evaluation. <Alyse Kohler - Last Filed: 06/17/19 08:19> - Medical Decision Making 06/21/19 10:11 The patient was seen and evaluated in conjunction with ABILIO Kohler under my direct supervision, ancillary studies were reviewed. I agree with the plan as outlined by ABILIO Kohler . <Severiano Rose - Last Filed: 06/21/19 10:12> Discharge - Discharge Information Problems reviewed: Yes <Alyse Kohler - Last Filed: 06/17/19 08:19> <Severiano Rose - Last Filed: 06/21/19 10:12> - Discharge Information Clinical Impression/Diagnosis: Viral URI with cough Condition: Stable Disposition: HOME - Patient Discharge Instructions Patient Printed Discharge Instructions: DI for Viral Upper Respiratory Infection -- Adult Additional Instructions: Get plenty of rest and drink plenty of fluids. Take Tylenol or ibuprofen for fevers. Use [id number] cough syrups or lozenges to help with your cough. Follow-up with your primary doctor within 1 to 2 days for repeat evaluation. Print Language: THAI - Post Discharge Activity Work/Back to School Note: Back to Work
== END 2019-06-17 08:43 | disposition home or self-care (01) ==
LOC: JER 07:03
DX: J06.9 Acute upper respiratory infection, unspecified (principal); B97.89 Other viral agents as the cause of diseases classified elsewhere
CPT/HCPCS: 99281-25

== ENCOUNTER 2019-07-20 14:16 | Emergency (ER) | payer OTHER ==
[2019-07-20 14:22] VITALS: BP 135/67; PULSE 55; TEMP 98.2; BMI 26.2
--- NOTE | 2019-07-20 14:52 | PDOC ---
History of Present Illness - General Chief Complaint: Injury Stated Complaint: LAC Time Seen by Provider: 07/20/19 14:38 History Source: Patient Exam Limitations: No Limitations - History of Present Illness Initial Comments: 07/20/19 14:49 HISTORY OF PRESENT ILLNESS: 24-year-old otherwise healthy woman presents emergency department for evaluation of right middle finger pain status post crush injury. Patient reports she was rearranging some furniture and got the tip of her right middle finger caught between the furniture and the wall. She noted increased pain and came to the emergency department for evaluation as she believes her finger is fractured. No recent travel or sick contacts. PAST MEDICAL HISTORY: Denies past medical history SURGICAL HISTORY: Denies ALLERGIES: No known drug allergies REVIEW OF SYSTEMS General/Constitutional: Denies fever or chills. Denies weakness, weight change. HEENT: Denies change in vision. Denies ear pain or discharge. Denies sore throat. Cardiovascular: Denies chest pain or shortness of breath. Respiratory: Denies cough, wheezing, or hemoptysis. Gastrointestinal: Denies nausea, vomiting, diarrhea or constipation. Denies rectal bleeding. Genitourinary: Denies dysuria, frequency, or change in urination. Musculoskeletal: See HPI Skin and breasts: Denies rash or easy bruising. Neurologic: Denies headache, vertigo, loss of consciousness, or loss of sensation. Psychiatric: Denies depression or anxiety. Endocrine: Denies increased thirst. Denies abnormal weight change. Hematologic/Lymphatic: Denies anemia, easy bleeding, or history of blood clots. Allergic/Immunologic: Denies hives or skin allergy. Denies latex allergy. PHYSICAL EXAM General Appearance: Well-appearing, appropriately dressed. No apparent distress, no intoxication. Musculoskeletal/Extremities: Normal inspection. FROM of all extremities, normal capillary refill. Pelvis Stable. Tender to palpation over the distal phalanx of the third finger on the right hand. Subungual hematoma is noted with mild discoloration consistent with an ecchymosis on the pulp of the distal phalanx. Full extension and flexion of the fingers against resistance noted. No palpable deformity, crepitus, step-off or subcutaneous emphysema is present. Neurovascularly intact. Past History - Past Medical History Allergies/Adverse Reactions: Allergies Allergy/AdvReac Type Severity Reaction Status Date / Time No Known Allergies Allergy Verified 07/20/19 14:22 Home Medications: Ambulatory Orders Acetaminophen [Tylenol .Regular Strength -] 650 mg PO Q3H PRN tablet 07/20/17 Ibuprofen [Motrin -] 200 mg PO Q4H PRN tablet 07/20/17 Asthma: No Cancer: No Cardiac Disorders: No COPD: No Diabetes: No HTN: No Seizures: No Thyroid Disease: No - Reproductive History (#): 2 Para: 1 Cervical CA: No Dysfunctional Uterine Bleeding: No Ectopic : No Endometrial CA: No Polycystic Ovaries: No Therapeutic (s) & number: No Tubal Ligation: No Spontaneous : 0 - Immunization History Immunization Up to Date: Yes - Psycho Social/Smoking Cessation Hx Smoking History: Never smoked Have you smoked in the past 12 months: No Hx Alcohol Use: Yes Drug/Substance Use Hx: No Substance Use Type: None Hx Substance Use Treatment: No *Physical Exam - Vital Signs Last Vital Signs Temp Pulse Resp BP Pulse Ox 98.2 F 55 L 18 135/67 100 07/20/19 14:19 07/20/19 14:19 07/20/19 14:19 07/20/19 14:19 07/20/19 14:19 ED Treatment Course - RADIOLOGY Radiology Studies Ordered: Category Date Time Status FINGER(S) RIGHT [RAD] Stat Radiology 07/20/19 14:40 Ordered Medical Decision Making - Medical Decision Making 07/20/19 14:51 A/P: 24-year-old woman with right middle finger pain status post crush injury Subungual hematoma present to the right third finger Tenderness to palpation over the distal phalanx with ecchymosis present to the pulp of the distal phalanx of the right third finger Full flexion extension against resistance noted No bony deformity, crepitus, step-off or subcutaneous emphysema is palpated X-rays Ice Patient is refusing pain medication at this time Reassess 07/20/19 14:55 X-rays as read by me: Comminuted fracture of the tip of the distal phalanx of the third finger of the right hand. Finger splint Discharge home with orthopedic follow-up I discussed the physical exam findings, ancillary test results and final diagnoses with the patient. I answered all of the patient's questions. The patient was satisfied with the care received and felt comfortable with the discharge plan and treatment plan. The patient will call their primary care physician within 24 hours to arrange follow-up and will return to the Emergency Department with any new, persistent or worsening symptoms. Portions of this note have been documented using voice recognition software. As a result, errors may occur in the vp strategic partnerships process. Effort has been made to correct all grammatical and vp strategic partnerships error, but some may have been missed which may produce sporadic inaccurate vp strategic partnerships or nonsensical phrases. Discharge - Discharge Information Problems reviewed: Yes Clinical Impression/Diagnosis: Fracture of distal phalanx of finger Qualifiers: Encounter type: initial encounter Finger: middle finger Fracture type: closed Fracture alignment: nondisplaced Laterality: right Qualified Code(s): S62.662A - Nondisplaced fracture of distal phalanx of right middle finger, initial encounter for closed fracture Condition: Stable Disposition: HOME - Admission No - Follow up/Referral Referrals: Kimberly Greene MD [Primary Care Provider] - Mitchell Brennan MD [Staff Physician] - - Patient Discharge Instructions Additional Instructions: Keep splint on finger until evaluated by orthopedist. Take Tylenol or Motrin as needed for pain. Apply ice to your finger for pain. 20 minutes on then 20 minutes off. Rest Return to emergency department for any new or worsening symptoms. Thank you very much for choosing us to provide your emergent healthcare needs. Mantenga la frula en el dedo hasta que la evale el ortopedista. [place] Tylenol o Motrin segn sea necesario para el dolor. Aplica hielo en el dedo para el dolor. 20 minutos y 20 minutos fuera. reposo Regrese al servicio de emergencias para cualquier sntoma nuevo o que empeore. Muchas carol por elegirnos para proporcionar melania necesidades de atencin mdica emergentes. - Post Discharge Activity Work/Back to School Note: Back to Work
[2019-07-20] MEDS ORDERED: IBUPROFEN 600 MG TABLET (FP) PO ONE ×2 (15:09→15:10)
== END 2019-07-20 15:08 | disposition home or self-care (01) ==
LOC: JERFT 14:16
PROC: 2W3JX1Z Immobilization of Right Finger using Splint (ICD-10-PCS; principal; 2019-07-20)
DX: S62.662A Nondisplaced fracture of distal phalanx of right middle finger, initial encounter for closed fracture (principal); W23.0XXA Caught, crushed, jammed, or pinched between moving objects, initial encounter; Y93.E9 Activity, other interior property and clothing maintenance; Y92.038 Other place in apartment as the place of occurrence of the external cause; Y99.8 Other external cause status
CPT/HCPCS: 29130; 73140-TC-RT-FY; 99283-25

== ENCOUNTER 2022-11-08 08:19 | Day surgery (SDC) | payer OTHER ==
[2022-11-01 18:04] VITALS: BMI 28.9
[2022-11-08] MEDS ORDERED: LACTATED RINGERS SOLUTION 1,000 ML IV SCH (09:00)
[2022-11-08] MEDS ORDERED: ONDANSETRON 4 MG/2 ML VIAL IVPUSH PRN (09:00)
[2022-11-08] MEDS ORDERED: MIDAZOLAM HCL 2 MG/2 ML SINGLE DOSE VIAL ONE (09:20)
[2022-11-08] MEDS ORDERED: PROPOFOL 20 ML ONE (09:20)
[2022-11-08] MEDS ORDERED: ceFAZolin SODIUM 1 GM VIAL ONE (09:23)
[2022-11-08] MEDS ORDERED: DEXAMETHASONE SOD PHOSPHATE 4 MG/1 ML VIAL ONE (09:23)
[2022-11-08] MEDS ORDERED: oxyCODONE HCL 5 MG TABLET ONE (10:42)
[2022-11-08] MEDS: oxyCODONE HCL 5 MG TABLET PO PRN ×2 (10:45→10:48)
[2022-11-08 11:52] VITALS: RESP 16; TEMP 97.8
[2022-11-08 11:55] VITALS: BP 114/73; PULSE 56
== END 2022-11-08 11:40 | disposition home or self-care (01) ==
LOC: FASU 08:19
PROVIDERS: ATTEND Orthopaedic Surgery Hand Surgery
PROC: 0JBK0ZX Excision of Left Hand Subcutaneous Tissue and Fascia, Open Approach, Diagnostic (ICD-10-PCS; principal; 2022-11-08 09:40)
DX: D21.12 Benign neoplasm of connective and other soft tissue of left upper limb, including shoulder (principal)
CPT/HCPCS: 84703; 94760

== ENCOUNTER 2023-01-31 16:24 | Emergency (ER) | payer OTHER ==
[2023-01-31 16:55] VITALS: BP 125/71; PULSE 80; RESP 18; TEMP 98.6; BMI 34.2
[2023-01-31] MEDS ORDERED: SODIUM CHLORIDE 1,000 ML IV STA (18:14)
[2023-01-31] MEDS ORDERED: MECLIZINE HCL 25 MG TABLET (FP) PO ONE (18:18)
[2023-01-31] MEDS ORDERED: MECLIZINE HCL 25 MG TABLET (FP) ONE (18:27)
[2023-01-31 18:39] LABS: BASO % 0.8 % (0-2.0); EOS % 1.6 % (0-4.5); HEMATOCRIT 37.8 % (32.4-45.2); HEMOGLOBIN 13.2 GM/dL (10.7-15.3); LYMPH % 35.9 % (8-40); MCH 29.5 pg (25.7-33.7); MCHC 34.8 g/dl (32.0-36.0); MEAN CELL VOLUME 84.7 fl (80-96); MEAN PLT VOLUME 8.5 fl (7.5-11.1); MONO % 13.5 % (3.8-10.2); NEUT % 48.2 % (42.8-82.8); PLATELET COUNT 309 10^3/uL (134-434); RBC 4.47 M/mm3 (3.60-5.2); RDW 13.1 % (11.6-15.6); WHITE BLOOD COUNT 5.2 K/mm3 (4.0-10.0)
[2023-01-31 18:54] LABS: EPI CELLS 9 /uL (0-25.1); HYALINE CASTS 0 /uL (0-3.1); URINE APPEARANCE CLEAR; URINE BACTERIA 63 /uL (0-1359); URINE BILIRUBIN NEGATIVE (NEGATIVE); URINE COLOR YELLOW; URINE GLUCOSE (UA) NEGATIVE (NEGATIVE); URINE KETONE NEGATIVE (NEGATIVE); URINE LEUK ESTERASE NEGATIVE (NEGATIVE); URINE NITRITE NEGATIVE (NEGATIVE); URINE PROTEIN NEGATIVE (NEGATIVE); URINE RBC 58 /uL (0-23.9); URINE UROBILINOGEN 0.2 mg/dL (0.2-1.0); URINE WBC 2 /uL (0-25.8)
[2023-01-31 18:57] LABS: POTASSIUM 3.8 mmol/L (3.5-5.1)
[2023-01-31 18:59] LABS: ALBUMIN 3.6 g/dl (3.4-5.0); BLOOD UREA NITROGEN 10.5 mg/dL (7-18); CALCIUM 8.8 mg/dL (8.5-10.1)
[2023-01-31 19:02] LABS: CREATININE 0.6 mg/dL (0.55-1.3)
[2023-01-31 19:05] LABS: BILIRUBIN,TOTAL 0.3 mg/dL (0.2-1); TOT PROT 6.8 g/dl (6.4-8.2)
[2023-01-31] MEDS ORDERED: KETOROLAC TROMETHAMINE 30 MG/1 ML VIAL IVPUSH ONE (19:23)
[2023-01-31] MEDS ORDERED: KETOROLAC TROMETHAMINE 30 MG/1 ML VIAL ONE (19:46)
[2023-02-01 09:41] LABS: MAGNESIUM 2.2 mg/dL (1.8-2.4)
== END 2023-01-31 20:20 | disposition home or self-care (01) ==
LOC: JER 16:24
PROC: 3E0337Z Introduction of Electrolytic and Water Balance Substance into Peripheral Vein, Percutaneous Approach (ICD-10-PCS; principal; 2023-01-31)
DX: R42 Dizziness and giddiness (principal); R51.9 Headache, unspecified
CPT/HCPCS: 0241U-QW; 36415; 80053; 81003; 83735; 84703; 85025; 87086; 93005; 93010; 99284-25